=== PATIENT | female | born 1940 | race Caucasian/White ===

== ENCOUNTER 2016-08-29 12:32 | Day surgery (SDC) | payer OTHER, BC ==
[~2016-08-29] VITALS: Ht 163.8 cm; Wt 77.0 kg
[~2016-08-29 12:32] MED LIST: ACIPHEX20 MG PO; DAILY VITAMIN1 EAC4 PO; FISH OIL300 MG PO; FOLIC ACID1 MG PO; LEVAQUIN500 MG PO; LIPITOR20 MG PO; LO-DOSE ASPIRIN81 M2 PO; METHOTREXATE2.5 MG PO; MULTI-VIT 55 P1 EACH PO; OMEGA 3 500 SO1 EACH PO; PREDNISONE5 M2 PO; TYLENOL EXTRA500 MG PO; VITAMIN C 250250 MG PO; VITAMIN D1000 UNIT PO; VITAMIN D32000 UNI1 PO
== END 2016-08-29 15:00 | disposition home or self-care (01) ==
LOC: CATH 12:32
PROC: 0JH63PZ Insertion of Cardiac Rhythm Related Device into Chest Subcutaneous Tissue and Fascia, Percutaneous Approach (ICD-10-PCS; principal; 2016-08-29)
DX: R00.2 Palpitations (principal); Z79.82 Long term (current) use of aspirin
CPT/HCPCS: J1200; J2250; J3010